=== PATIENT | male | born 1975 | race African-American/Black ===

== ENCOUNTER 2016-09-10 07:36 | Emergency (ER) | payer SELFPAY ==
[2016-09-10 07:58] VITALS: TEMP 97.8; BMI 30.5
[2016-09-10] MEDS ORDERED: ASPIRIN 81 MG CHEWABLE TABLETS PO ONE (08:00)
--- NOTE | 2016-09-10 08:01 | PDOC ---
History of Present Illness - General Chief Complaint: Chest Pain Stated Complaint: ON AND OFF SINCE LAST NIGHT INCRESES WITH MOVEMEN Time Seen by Provider: 09/10/16 07:41 - History of Present Illness Initial Comments: 09/10/16 08:16 41-year-old male with a past medical history of asthma, for which he is on an inhaler and Singulair He's had 3 prior knee surgeries, the most recent over a year ago Patient is complaining of the onset of left sided upper chest discomfort off and on since last night He denies any neck jaw or arm radiation He denies any associated diaphoresis or shortness of breath He does admit to occasional palpitations He states the discomfort is somewhat worse with musculoskeletal maneuvers and pulling himself up to a sitting position He denies any leg swelling or calf pain He denies any recent travel He states the pain is been off and on since last night He states a month ago he had similar pain but did not seek medical attention Cardiac risk factors- He has no family history of CAD He has no personal history of hypertension, hyperlipidemia, or diabetes He states he had a normal stress test 2 years ago He denies any associated abdominal pain He denies any other complaints at this time, and the remainder of the review of systems is negative Past History - Past Medical History Allergies/Adverse Reactions: Allergies Allergy/AdvReac Type Severity Reaction Status Date / Time shellfish derived Allergy Severe SWELLING, Verified 09/10/16 07:59 TROUBLE BREATHING. almonds Allergy Severe Difficulty Uncoded 09/10/16 07:59 Breathing some fruits Allergy Severe SWELLING, Uncoded 12/31/15 17:04 TROUBLE BREATHING. Home Medications: Ambulatory Orders Albuterol Sulfate [Proair Respiclick] 90 mcg IH PRN PRN 09/10/16 Ibuprofen 600 mg PO PRN PRN 09/10/16 Montelukast Na [Singulair -] 10 mg PO HS 09/10/16 Anemia: No Asthma: Yes Cancer: No Cardiac Disorders: Yes (H/O SYNCOPE) CVA: No COPD: No CHF: No Dementia: No Diabetes: No GI Disorders: No Disorders: No HTN: No Hypercholesterolemia: No Liver Disease: No Suicide Attempt (Hx): No Seizures: No Thyroid Disease: No Other medical history: VERTIGO - Surgical History Abdominal Surgery: Yes Appendectomy: Yes Cardiac Surgery: No Cholecystectomy: No Lung Surgery: No Neurologic Surgery: No Orthopedic Surgery: (left knee sx this year/ right knee sx 2 yrs ago) - Immunization History Td Vaccination: No - Psycho/Social/Smoking Cessation Hx Anxiety: No Suicidal Ideation: No Smoking Status: No Smoking History: Never smoked Have you smoked in the past 12 months: No Number of Cigarettes Smoked Daily: 0 Hx Alcohol Use: Yes Drug/Substance Use Hx: No Substance Use Type: Alcohol Hx Substance Use Treatment: No Review of Systems - Review of Systems Able to Perform ROS?: Yes Comments:: 09/10/16 08:18 12 point review of systems is as per history of present illness and otherwise negative *Physical Exam - Vital Signs Last Vital Signs Temp Pulse Resp BP Pulse Ox 97.8 F 78 18 119/85 99 09/10/16 07:38 09/10/16 07:38 09/10/16 07:38 09/10/16 07:38 09/10/16 07:38 - Physical Exam Comments: 09/10/16 08:19 Physical exam Last Vital Signs Temp Pulse Resp BP Pulse Ox 97.8 F 78 18 119/85 99 09/10/16 07:38 09/10/16 07:38 09/10/16 07:38 09/10/16 07:38 09/10/16 07:38 GENERAL: The patient is awake, alert, and fully oriented, and in no apparent distress. HEAD: Normal with no signs of trauma. EYES: sclera anicteric, conjunctiva are normal. ENT: Moist mucous membranes. NECK: Normal range of motion, supple LUNGS: Breath sounds equal, clear to auscultation bilaterally. No wheezes, and no crackles. HEART: Regular rate and rhythm, normal S1 and S2 without murmur, rub or gallop. CHEST WALL: There is some tenderness to the left anterior upper chest wall which somewhat reproduces the discomfort ABDOMEN: Soft, nontender, normoactive bowel sounds. No guarding, no rebound. No masses appreciated. EXTREMITIES: Normal range of motion, no edema. No clubbing or cyanosis. No cords, erythema, or tenderness. NEUROLOGICAL: Cranial nerves II through XII grossly intact. Normal speech, normal gait. PSYCH: Normal mood, normal affect. SKIN: Warm, Dry, normal turgor, no rashes or lesions noted. Heart Score/ECG Review - History History: Slightly suspicious - Electrocardiogram EKG: Normal - Age Age: </= 45 - Risk Factors Based on the list above the patient has:: 1-2 risk factors - Troponin Troponin: </= normal limit - Score Heart Score - Total: 1 ED Treatment Course - LABORATORY CBC & Chemistry Diagram: 09/10/16 08:10 09/10/16 08:37 - RADIOLOGY Radiology Studies Ordered: Category Date Time Status CHEST X-RAY PORTABLE* [RAD] Stat Radiology 09/10/16 08:00 Ordered Medical Decision Making - Medical Decision Making 09/10/16 08:19 Heart score is 0-1 EKG Normal sinus rhythm 63, normal axis Normal AV and IV conduction time Mild sinus arrhythmia Otherwise normal EKG When compared to the EKG of 12/31/59 Today's EKG is essentially unchanged from the prior EKG 09/10/16 10:42 Chest x-ray-NAD Labwork reviewed Laboratory Results - last 24 hr 09/10/16 09/10/16 09/10/16 08:10 08:10 08:10 WBC 5.2 RBC 4.66 Hgb 15.2 Hct 43.3 MCV 93.1 MCHC 35.1 RDW 11.4 L Plt Count 200 MPV 8.8 Sodium Cancelled Potassium Cancelled Chloride Cancelled Carbon Dioxide Cancelled Anion Gap Cancelled BUN Cancelled Creatinine Cancelled Creat Clearance w eGFR Cancelled Random Glucose Cancelled Calcium Cancelled Magnesium Cancelled Total Bilirubin Cancelled AST Cancelled ALT Cancelled Alkaline Phosphatase Cancelled Creatine Kinase Cancelled Troponin I Cancelled Total Protein Cancelled Albumin Cancelled 09/10/16 09/10/16 08:37 08:37 WBC RBC Hgb Hct MCV MCHC RDW Plt Count MPV Sodium 139 Potassium 4.4 Chloride 102 Carbon Dioxide 25 Anion Gap 12 BUN 15 Creatinine 1.1 Creat Clearance w eGFR > 60 Random Glucose 99 Calcium 9.8 Magnesium 1.8 Total Bilirubin 1.0 AST 28 ALT 24 Alkaline Phosphatase 53 Creatine Kinase 198 H Troponin I Total Protein 8.3 Albumin 4.8 09/10/16 10:52 First set of cardiac enzymes negative 09/10/16 11:25 Will need second set of cardiac enzymes and second EKG around 2 PM 09/10/16 11:50 Patient refuses to stay any longer for second set of cardiac enzymes and second EKG I explained to him that we have not ruled out a cardiac cause for his pain at this time, and he is leaving before his evaluation is complete Patient has decided to leave AMA The patient had a normal mental status examination, and understands his/her condition, and the risk of leaving (include specific details), including permanent disability and/or . The patient has had an opportunity to ask questions about his/her medical condition. The patient has been informed that he/she may return for care at any time, and has been referred to his/her own physician He will call Dr. Palm today *DC/Admit/Observation/Transfer Diagnosis at time of Disposition: Chest pain - Discharge Dispostion Disposition: AGAINST MEDICAL ADVICE Condition at time of disposition: Stable - Patient Instructions Printed Discharge Instructions: DI for Chest Pain Additional Instructions: You are leaving AGAINST MEDICAL ADVICE As I explained to you, we have not ruled out heart disease with complete certainty since you are not staying for your second set of cardiac enzymes and second EKG Please call Dr. Palm when you get home to be seen in the office SIM[facility]N Please return immediately if you develop chest pain or worsen in any way - Post Discharge Activity Work/School Note: Back to Work
[2016-09-10] MEDS ORDERED: ASPIRIN 81 MG CHEWABLE TABLETS ONE ×2 (08:23→08:25)
[2016-09-10 08:25] LABS: MCH 32.7 pg (25.7-33.7); MCHC 35.1 g/dl (32.0-35.9); MEAN CELL VOLUME 93.1 fl (80-96); MEAN PLT VOLUME 8.8 fl (7.5-11.1); PLATELET COUNT 200 K/MM3 (134-434); RDW 11.4 % (11.9-15.9); WHITE BLOOD COUNT 5.2 K/mm3 (4.0-10.8)
[2016-09-10 10:08] LABS: ALBUMIN 4.8 g/dl (3.5-5.0); ALK PHOS 53 U/L (32-92); ANION GAP 12 (8-16); CALCIUM 9.8 mg/dl (8.4-10.2); CO2 25 mmol/L (22-28); CREATININE 1.1 mg/dl (0.6-1.3); GLUCOSE,RANDOM 99 mg/dl (74-106); MAGNESIUM 1.8 mg/dL (1.8-2.4); SGOT/AST 28 U/L (10-42); SGPT/ALT 24 U/L (10-40); TOT PROT 8.3 g/dl (6.4-8.3)
[2016-09-10 10:30] LABS: CPK(DFH) 198 IU/L (38-174)
[2016-09-10 10:49] LABS: CK MB 2.4 ng/ml (0.3-4.0); TROPONIN I (DFP) < 0.03 ng/ml (0.03-0.50)
[2016-09-10 11:52] VITALS: BP 108/79; PULSE 68
--- NOTE | 2016-09-10 13:53 | EKG ---
Test Reason : Blood Pressure : / mmHG Vent. Rate : 072 BPM Atrial Rate : 072 BPM P-R Int : 118 ms QRS Dur : 086 ms QT Int : 380 ms P-R-T Axes : 079 066 069 degrees QTc Int : 416 ms NORMAL SINUS RHYTHM NORMAL ECG WHEN COMPARED WITH ECG OF 31-DEC-2015 18:25, QT HAS LENGTHENED Confirmed by USHA PEREZ MD ([id number]) on 09/10/2016 1:53:14 PM Referred By: HANSA AYALA Confirmed By:USHA PEREZ MD
== END 2016-09-10 12:00 | disposition left against medical advice (07) ==
LOC: FER 07:36
DX: R07.9 Chest pain, unspecified (principal); J45.909 Unspecified asthma, uncomplicated
CPT/HCPCS: 36415; 71010-TC; 80053; 82550; 82553; 83735; 84484; 85027; 93005; 99284-25

== ENCOUNTER 2019-02-25 11:32 | Emergency (ER) | payer BC, OTHER ==
[2019-02-25 12:02] VITALS: BP 116/69; PULSE 60; TEMP 98; BMI 29.8
--- NOTE | 2019-02-25 12:55 | PDOC ---
History of Present Illness - General Chief Complaint: Lightheaded Stated Complaint: LIGHT HEADED Time Seen by Provider: 02/25/19 11:38 History Source: Patient Exam Limitations: No Limitations - History of Present Illness Initial Comments: 02/25/19 12:51 CHIEF COMPLAINT: Vertigo x5 days HISTORY OF PRESENT ILLNESS: 43-year-old man with a history of prior episodes of vertigo presents complaining of 5 days of vertigo. He said he awoke on Wednesday and was noticing in the morning a room spinning sensation which seemed to get better over the course the day. He again had some symptoms on Wednesday which seemed to get better over the last couple of days. He is feeling somewhat better today, but he wanted to get checked out. 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 There is no nausea or vomiting. There is no headache. There is no fever or chills. There is no focal numbness or weakness. There is no chest pain or shortness of breath. REVIEW OF SYSTEMS: GENERAL/CONSTITUTIONAL: No fever or chills. No weakness. No weight change. HEAD, EYES, EARS, NOSE AND THROAT: No change in vision. No ear pain or discharge. No sore throat. CARDIOVASCULAR: No chest pain or shortness of breath. RESPIRATORY: No cough, wheezing, or hemoptysis. GASTROINTESTINAL: No nausea, vomiting, diarrhea or constipation. No rectal bleeding. GENITOURINARY: No dysuria, frequency, or change in urination. MUSCULOSKELETAL: No joint or muscle swelling or pain. No neck or back pain. SKIN AND BREASTS: No rash or easy bruising. NEUROLOGIC: No headache, positive vertigo, no loss of consciousness, no loss of sensation. PSYCHIATRIC: No depression or anxiety. ENDOCRINE: No increased thirst. No abnormal weight change. HEMATOLOGIC/LYMPHATIC: No anemia, easy bleeding, or history of blood clots. ALLERGIC/IMMUNOLOGIC: No hives or skin allergy. No latex allergy. Past History - Past Medical History Allergies/Adverse Reactions: Allergies Allergy/AdvReac Type Severity Reaction Status Date / Time shellfish derived Allergy Severe SWELLING, Verified 02/25/19 11:54 TROUBLE BREATHING. almonds Allergy Severe Difficulty Uncoded 09/10/16 07:59 Breathing some fruits Allergy Severe SWELLING, Uncoded 12/31/15 17:04 TROUBLE BREATHING. Home Medications: Ambulatory Orders Albuterol Sulfate [Proair Respiclick] 90 mcg IH PRN PRN 09/10/16 Montelukast Na [Singulair -] 10 mg PO DAILY 09/10/16 Meclizine HCl 25 mg PO Q6H PRN #20 tab.chew 02/25/19 Anemia: No Asthma: Yes (no admissions for many years) Cancer: No Cardiac Disorders: Yes (H/O SYNCOPE) CVA: No COPD: No CHF: No Dementia: No Diabetes: No GI Disorders: No Disorders: No HTN: No Hypercholesterolemia: No Liver Disease: No Seizures: No Thyroid Disease: No Other medical history: VERTIGO - Surgical History Abdominal Surgery: Yes Appendectomy: Yes Cardiac Surgery: No Cholecystectomy: No Lung Surgery: No Neurologic Surgery: No Orthopedic Surgery: (left knee sx this year/ right knee sx 2 yrs ago) - Immunization History Td Vaccination: No - Psycho Social/Smoking Cessation Hx Smoking Status: No Smoking History: Never smoked Have you smoked in the past 12 months: No Number of Cigarettes Smoked Daily: 0 Hx Alcohol Use: Yes Drug/Substance Use Hx: No Substance Use Type: Alcohol Hx Substance Use Treatment: No *Physical Exam - Vital Signs Last Vital Signs Temp Pulse Resp BP Pulse Ox 98 F 60 19 116/69 99 02/25/19 11:34 02/25/19 11:34 02/25/19 11:34 02/25/19 11:34 02/25/19 11:34 - Physical Exam Comments: 02/25/19 12:53 GENERAL: The patient is awake, alert, and fully oriented, in no acute distress. HEAD: Normal with no signs of trauma. EYES: Pupils equal, round and reactive to light, extraocular movements intact, no nystagmus, sclera anicteric, conjunctiva clear. ENT: Ears normal, nares patent, oropharynx clear without exudates. Moist mucous membranes. NECK: Normal range of motion, supple without lymphadenopathy, JVD, or masses. LUNGS: Breath sounds equal, clear to auscultation bilaterally. No wheezes, and no crackles. HEART: Regular rate and rhythm, normal S1 and S2 without murmur, rub or gallop. ABDOMEN: Soft, nontender, normoactive bowel sounds. No guarding, no rebound. No masses. EXTREMITIES: Normal range of motion, no edema. No clubbing or cyanosis. No cords, erythema, or tenderness. NEUROLOGICAL: Cranial nerves II through XII intact. No facial weakness, no facial asymmetry, normal speech, normal swallowing, normal facial sensation, motor strength 5/5, no pronator drift, normal cerebellar function with no dysmetria arms or legs, normal speech, normal gait, normal heel and toe walking , normal tandem. Patient with mild vertigo on sudden head turning and changing to supine posture. PSYCH: Normal mood, normal affect. SKIN: Warm, Dry, normal turgor, no rashes or lesions noted. Medical Decision Making - Medical Decision Making 02/25/19 13:15 43-year-old man with no vascular risk factors presents complaining of recurrent vertigo. He has a history of episodic vertigo in the past, and now comes in with a history of a few days of recurrent vertigo. The vertigo is somewhat positional. There are no associated posterior circulation signs. There is no diplopia, no facial weakness, no difficulty speaking or swallowing. There is no motor weakness or sensory complaint. On examination, the patient's cranial nerves are normal. There is no nystagmus. His motor and sensory testing is normal. His cerebellar testing is normal. His gait is normal including tandem gait. On turning and change of head position, there is some worsening of vertigo, but the symptoms today are mild. Impression: Positional vertigo, no signs of central cause. Plan: I initially recommended labs for the patient to rule out any electrolyte disturbances. He initially agreed but then states he already had lab work recently at his primary care physician and he is refusing labs. There is no particular suspicion of anemia or electrolyte disturbance, and patient will follow-up with his primary physician or return to the emergency department for any progressive symptoms. Prescription for prn meclizine sent to his pharmacy for as needed use. Discharge - Discharge Information Problems reviewed: Yes Clinical Impression/Diagnosis: Positional vertigo Condition: Stable Disposition: HOME - Admission No - Additional Discharge Information Prescriptions: Meclizine HCl 25 mg PO Q6H PRN #20 tab.chew PRN Reason: as needed for vertigo - Follow up/Referral Referrals: Rafael Virk MD [Staff Physician] - 3 days - Patient Discharge Instructions Patient Printed Discharge Instructions: DI for Benign Paroxysmal Positional Vertigo Additional Instructions: Today you were evaluated for vertigo. The neurological examination was normal. A prescription for meclizine was sent to your pharmacy. You may take it every 6 hours as needed for vertigo. If the symptoms are going away, it is not necessary to take the medication. Follow-up with Dr. Virk, neurologist, if your symptoms have not resolved in the next few days. Return to the emergency department for any severe or progressive symptoms. - Post Discharge Activity
== END 2019-02-25 13:24 | disposition home or self-care (01) ==
LOC: FER 11:32
DX: H81.10 Benign paroxysmal vertigo, unspecified ear (principal); Z91.018 Allergy to other foods; Z91.013 Allergy to seafood; J45.909 Unspecified asthma, uncomplicated
CPT/HCPCS: 99282-25

== ENCOUNTER 2021-12-24 10:59 | Emergency (ER) | payer OTHER, BC ==
[2021-12-24 11:08] VITALS: BP 117/79; PULSE 66; RESP 18; TEMP 98.1; BMI 30.5
[2021-12-24] MEDS ORDERED: predniSONE 20 MG TABLET (UD) PO ONE (11:08)
[2021-12-24] MEDS ORDERED: predniSONE 10 MG TABLET (UD) ONE (11:10)
[2021-12-24] MEDS ORDERED: predniSONE 20 MG TABLET (UD) ONE (11:10)
[2021-12-25] MEDS ORDERED: predniSONE 20 MG TABLET (UD) PO ONE (11:08)
== END 2021-12-24 11:23 | disposition home or self-care (01) ==
LOC: FER 10:59
DX: R22.42 Localized swelling, mass and lump, left lower limb (principal); T78.40XA Allergy, unspecified, initial encounter
CPT/HCPCS: 99283-25

== ENCOUNTER 2022-01-12 10:38 | Emergency (ER) | payer BC, OTHER ==
[2022-01-12 10:45] VITALS: BP 133/80; PULSE 72; RESP 20; TEMP 98.3; BMI 29.8
[2022-01-12] MEDS ORDERED: SODIUM CHLORIDE 1,000 ML IV STA (11:34)
[2022-01-12 12:13] LABS: HEMATOCRIT 38.9 % (35.4-49); HEMOGLOBIN 13.7 G/dL (11.7-16.9); MCH 33.6 pg (25.7-33.7); MCHC 35.1 g/dl (32.0-35.9); MEAN CELL VOLUME 95.7 fl (80-96); MEAN PLT VOLUME 8.5 fl (7.5-11.1); PLATELET COUNT 202.9 10^3/uL (134-434); RBC 4.07 10^6/uL (4.00-5.60); RDW 12.8 % (11.9-15.9); WHITE BLOOD COUNT 4.4 10^3/uL (4.0-10.8)
[2022-01-12 12:30] LABS: ALBUMIN 4.2 g/dl (3.4-5.0); BILIRUBIN,TOTAL 1.2 mg/dl (0.2-1); CALCIUM 9.6 mg/dl (8.5-10); CREATININE 1.2 mg/dl (0.55-1.3); TOT PROT 7.2 g/dl (6.4-8.2)
== END 2022-01-12 14:04 | disposition home or self-care (01) ==
LOC: FER 10:38
PROC: 3E0337Z Introduction of Electrolytic and Water Balance Substance into Peripheral Vein, Percutaneous Approach (ICD-10-PCS; principal; 2022-01-12)
DX: E86.0 Dehydration (principal)
CPT/HCPCS: 36415; 80053; 85027; 99284-25

== ENCOUNTER 2022-09-25 18:28 | Emergency (ER) | payer BC ==
[2022-09-25 18:46] VITALS: BP 120/82; PULSE 66; RESP 18; TEMP 98.1; BMI 30.5
[2022-09-25] MEDS ORDERED: SODIUM CHLORIDE 1,000 ML IV STA (19:17)
[2022-09-25 19:32] LABS: HEMATOCRIT 40.3 % (35.4-49); HEMOGLOBIN 13.7 G/dL (11.7-16.9); MCH 32.5 pg (25.7-33.7); MCHC 33.9 g/dl (32.0-35.9); MEAN CELL VOLUME 95.7 fl (80-96); MEAN PLT VOLUME 8.4 fl (7.5-11.1); PLATELET COUNT 216.1 10^3/uL (134-434); RBC 4.21 10^6/uL (4.00-5.60); RDW 13.1 % (11.9-15.9); WHITE BLOOD COUNT 5.8 10^3/uL (4.0-10.8)
[2022-09-25 19:42] LABS: ALBUMIN 4.2 g/dl (3.4-5.0); BILIRUBIN,TOTAL 0.7 mg/dl (0.2-1); CALCIUM 9.5 mg/dl (8.5-10); CREATININE 1.1 mg/dl (0.55-1.3); POTASSIUM 4.3 mmol/L (3.5-5.1); TOT PROT 7.1 g/dl (6.4-8.2)
[2022-09-25 20:04] LABS: PLATELET ESTIMATE ADEQUATE
== END 2022-09-25 20:39 | disposition home or self-care (01) ==
LOC: FER 18:28
PROC: 3E0337Z Introduction of Electrolytic and Water Balance Substance into Peripheral Vein, Percutaneous Approach (ICD-10-PCS; principal; 2022-09-25)
DX: R25.2 Cramp and spasm (principal); M62.838 Other muscle spasm; M79.644 Pain in right finger(s); M79.645 Pain in left finger(s); M79.674 Pain in right toe(s); M79.675 Pain in left toe(s)
CPT/HCPCS: 36415; 80053; 83735; 85027; 99284-25

== ENCOUNTER 2022-11-18 07:13 | Emergency (ER) | payer BC ==
[2022-11-18 07:30] VITALS: BP 121/69; PULSE 63; RESP 18; TEMP 98.4; BMI 31.1
[2022-11-18] MEDS ORDERED: IBUPROFEN 400 MG TABLET (FP) PO ONE ×2 (07:41→07:48)
== END 2022-11-18 09:55 | disposition left against medical advice (07) ==
LOC: FER 07:13
DX: R10.31 Right lower quadrant pain (principal)
CPT/HCPCS: 74176-TC; 81003; 87086; 99284-25

== ENCOUNTER 2023-02-17 02:46 | Emergency (ER) | payer BC ==
[2023-02-17 02:51] VITALS: BP 115/75; PULSE 73; RESP 19; TEMP 98.3; BMI 30.5
[2023-02-17] MEDS ORDERED: SODIUM CHLORIDE 1,000 ML IV STA (03:02)
[2023-02-17 05:36] LABS: BASO % 0.8 % (0-2.0); EOS % 4.8 % (0-4.5); HEMATOCRIT 37.7 % (35.4-49); HEMOGLOBIN 12.9 GM/dL (11.7-16.9); LYMPH % 25.7 % (8-40); MCHC 34.2 g/dl (32.0-35.9); MEAN CELL VOLUME 93.5 fl (80-96); MEAN PLT VOLUME 8.8 fl (7.5-11.1); MONO % 7.5 % (3.8-10.2); NEUT % 61.2 % (42.8-82.8); PLATELET COUNT 254 10^3/uL (134-434); RBC 4.03 M/mm3 (4.00-5.60); RDW 12.7 % (11.9-15.9); WHITE BLOOD COUNT 7.2 K/mm3 (4.0-10.0)
[2023-02-17 05:59] LABS: POTASSIUM 4.1 mmol/L (3.5-5.1)
[2023-02-17 06:01] LABS: CALCIUM 9.2 mg/dL (8.5-10.1)
[2023-02-17 06:02] LABS: ALBUMIN 3.9 g/dl (3.4-5.0); BLOOD UREA NITROGEN 19.4 mg/dL (7-18)
[2023-02-17 06:05] LABS: CREATININE 1.1 mg/dL (0.55-1.3)
[2023-02-17 06:06] LABS: TOT PROT 7.5 g/dl (6.4-8.2)
[2023-02-17 06:07] LABS: BILIRUBIN,TOTAL 0.6 mg/dL (0.2-1)
[2023-02-17] MEDS ORDERED: POLYETHYLENE GLYCOL (HEALTHYLAX) 3350 17 GM PACKET PO SCH (06:30)
== END 2023-02-17 06:31 | disposition home or self-care (01) ==
LOC: FER 02:46
PROC: 3E0337Z Introduction of Electrolytic and Water Balance Substance into Peripheral Vein, Percutaneous Approach (ICD-10-PCS; principal; 2023-02-17)
DX: R42 Dizziness and giddiness (principal); E86.0 Dehydration; R61 Generalized hyperhidrosis; R11.0 Nausea
CPT/HCPCS: 36415; 80053; 84484; 85025; 99284-25